=== PATIENT | female | born 1960 ===

== ENCOUNTER 2017-12-18 09:51 | Emergency (ER) | payer MEDICARE, OTHER ==
[2017-12-18 10:00] VITALS: O2SAT 98; BMI 35.9
[2017-12-18 10:04] VITALS: RESP 16
[2017-12-18] MEDS ORDERED: Lidocaine 5% Patch TD STA (10:37)
[2017-12-18] MEDS ORDERED: Lidocaine 5% Patch TD ONE (10:51)
--- NOTE | 2017-12-18 11:07 | ED PDOC ---
HPI: Back Time Seen by Provider: 12/18/17 10:00 Chief Complaint (Nursing): Back Pain History Per: Patient History/Exam Limitations: no limitations Current Symptoms Are (Timing): Still Present Additional Complaint(s): 56-year-old female presents to ED, with a PMHx of Sciatica, complaining of recurrence pain in the right lower back that radiates to right buttocks and right thigh. Pt reports symptoms has worsen. Pt reports 3-4 days ago, pt was in the park playing with grandchildren. (-) fever, (-) chills, (-) urinary complaints, (-) urine and stool incontinence. Pt reports she takes naprosyn twice a day and ibuprofen intermittently. PMD: No Family Provider Past Medical History Reviewed: Historical Data, Nursing Documentation, Vital Signs Vital Signs: Last Vital Signs Temp 98.6 F 12/18/17 09:59 Pulse 60 12/18/17 09:59 Resp 16 12/18/17 09:59 BP 130/70 12/18/17 09:59 Pulse Ox 98 12/18/17 09:59 - Medical History Other PMH: Sciatica [diagnosed by another ER several years ago] - Surgical History Surgical History: No Surg Hx - Family History Family History: States: No Known Family Hx - Social History Current smoker - smoking cessation education provided: No Alcohol: None - Home Medications Home Medications: Ambulatory Orders Medication Instructions Recorded Acetaminophen [Tylenol 325mg tab] 650 mg PO Q6H PRN #50 tab 12/18/17 Cyclobenzaprine [Cyclobenzaprine 10 mg PO TID #20 tab 12/18/17 HCl] Lidocaine 5% [Lidoderm] 1 ea TD DAILY #10 patch 12/18/17 - Allergies Allergies/Adverse Reactions: Allergies Allergy/AdvReac Type Severity Reaction Status Date / Time No Known Allergies Allergy Verified 12/18/17 10:02 Review of Systems ROS Statement: Except As Marked, All Systems Reviewed And Found Negative Constitutional: Negative for: Fever, Chills Genitourinary Female: Negative for: Dysuria, Incontinence, Hematuria Physical Exam - Reviewed Nursing Documentation Reviewed: Yes Vital Signs Reviewed: Yes - Physical Exam Appears: Positive for: No Acute Distress Skin: Positive for: Normal Color, Warm, Dry Eye Exam: Positive for: EOMI, Normal appearance, PERRL ENT: Positive for: Normal ENT Inspection Neck: Positive for: Supple Cardiovascular/Chest: Positive for: Regular Rate, Rhythm (S1 and S2 sounds present) Respiratory: Positive for: Normal Breath Sounds (Lungs clear). Negative for: Respiratory Distress Gastrointestinal/Abdominal: Positive for: Normal Exam, Soft. Negative for: Tenderness Back: Positive for: Normal Inspection. Negative for: Other (swelling or deformity) Neurologic/Psych: Positive for: Alert, Oriented (x 3), Cerebellar Tests (Motor Strength: +5/5 of the lower extremity b/l). Negative for: Other (straight leg raise) - ECG O2 Sat by Pulse Oximetry: 98 (RA) Pulse Ox Interpretation: Normal - Radiology X-Ray: Viewed By Ia X-Ray Interpretation: No Acute Disease - Progress Re-evaluation Time: 12:30 Condition: Improving,but remains with symptoms Medical Decision Making Medical Decision Making: Time: 10:37 Impression(s): Back Pain, Muscle spasm, Hx of Sciatica Plan: - ED Urine Dipstick - Lumbar Spine Complete X-Ray - Flexeril 10 mg PO - Lidoderm 1 ea TD - Tylenol 325 mg Tab - Pelvis X-Ray Time: 11:36 Pelvis X-Ray FINDINGS: BONES: Pelvic Bones: Unremarkable. Hips: Grossly unremarkable. JOINTS: Sacroiliac Joints: Unremarkable. Pubic Symphysis: Unremarkable. OTHER FINDINGS: None. IMPRESSION: Unremarkable radiographs of the pelvis. Time: 11:37 Lumbar Spine Complete X-Ray FINDINGS: BONES: Normal alignment. Grade 1 anterolisthesis of L4 on L5. No fracture. DISC SPACES: Multilevel disc space narrowing, most prominent at L5-S1, with endplate changes. OTHER FINDINGS: None. IMPRESSION: No acute fracture. Multilevel degenerative changes. Grade 1 anterolisthesis of L4 on L5 Scribe Attestation: Documented by Marquise Hunter, acting as a scribe for Norma Ac MD. Provider Scribe Attestation: All medical record entries made by the Scribe were at my direction and personally dictated by me. I have reviewed the chart and agree that the record accurately reflects my personal performance of the history, physical exam, medical decision making, and the department course for this patient. I have also personally directed, reviewed, and agree with the discharge instructions and disposition. Disposition - Clinical Impression Clinical Impression: Chronic back pain - Patient ED Disposition Is Patient to be Admitted: No Doctor Will See Patient In The: Office Counseled Patient/Family Regarding: Diagnosis, Need For Followup, Rx Given - Disposition Referrals: [facility] [Outside] Disposition: Routine/Home Disposition Time: 12:30 Condition: IMPROVED Additional Instructions: Continue Naprosyn or Advil or Motrin regularly. These medicines should not be taken together. Prescriptions: Acetaminophen [Tylenol 325mg tab] 650 mg PO Q6H PRN #50 tab PRN Reason: Pain, Mild (1-3) Cyclobenzaprine [Cyclobenzaprine HCl] 10 mg PO TID #20 tab Lidocaine 5% [Lidoderm] 1 ea TD DAILY #10 patch Instructions: Low Back Pain in Adults, Sciatica Exercises Forms: [id number] (Malay), [facility] ED School/Work Excuse - POA Present On Arrival: None
--- NOTE | 2017-12-18 11:38 | RAD ---
PROCEDURE: Radiographs of the pelvis. HISTORY: back pain to right thigh COMPARISON: None. FINDINGS: BONES: Pelvic Bones: Unremarkable. Hips: Grossly unremarkable. JOINTS: Sacroiliac Joints: Unremarkable. Pubic Symphysis: Unremarkable. OTHER FINDINGS: None. IMPRESSION: Unremarkable radiographs of the pelvis.
--- NOTE | 2017-12-18 11:39 | RAD ---
PROCEDURE: Radiographs of the Lumbar Spine. HISTORY: back pain to right thigh COMPARISON: No prior. FINDINGS: BONES: Normal alignment. Grade 1 anterolisthesis of L4 on L5. No fracture. DISC SPACES: Multilevel disc space narrowing, most prominent at L5-S1, with endplate changes. OTHER FINDINGS: None. IMPRESSION: No acute fracture. Multilevel degenerative changes. Grade 1 anterolisthesis of L4 on L5
[2017-12-18 13:26] VITALS: BP 142/72; PULSE 62; TEMP 98.2
== END 2017-12-18 13:00 | disposition home or self-care (01) ==
LOC: H.ER 09:51
DX: M54.5 Low back pain (principal); G89.29 Other chronic pain; M54.30 Sciatica, unspecified side